=== PATIENT | male | born 1965 | race Caucasian/White ===

== ENCOUNTER → 2019-11-07 | Day surgery (SDC) | payer OTHER ==
[~2019-11-07] MED LIST: DICL50TA2 PO; IV RINGERS,LACTATED 1000ML 1,000 ML IV SCH; LIDOCAINE 2% PF 5 ML VIAL. ONE; LISI10TA2 PO; PROPOFOL 40 ML IV ONE
[2019-11-07 10:13] VITALS: BP 122/62
== END ==
LOC: SURG 08:10
PROVIDERS: ATTEND Internal Medicine Gastroenterology
DX: Z12.11 Encounter for screening for malignant neoplasm of colon (principal); K64.0 First degree hemorrhoids; K63.89 Other specified diseases of intestine; K25.9 Gastric ulcer, unspecified as acute or chronic, without hemorrhage or perforation; K21.9 Gastro-esophageal reflux disease without esophagitis; I10 Essential (primary) hypertension; Z83.71 Family history of colonic polyps; Z88.0 Allergy status to penicillin
CPT/HCPCS: 45378; J2001; J2704

== ENCOUNTER → 2020-01-06 | Outpatient (CLI) | payer OTHER ==
[2019-11-07 10:13] VITALS: BP 122/62
[~2020-01-06] MED LIST changes: -IV RINGERS,LACTATED 1000ML 1,000 ML IV SCH; -LIDOCAINE 2% PF 5 ML VIAL. ONE; -PROPOFOL 40 ML IV ONE
--- NOTE | 2020-01-06 07:39 | RAD ---
EXAM: CHEST 2 VIEWS. HISTORY: Psoriasis. COMPARISON: None. FINDINGS: Frontal and lateral views of the chest are obtained. There are no confluent infiltrates. There is a calcified granuloma in the left midlung. There is no pneumothorax or pleural effusion. The heart is mildly enlarged. IMPRESSION: 1. Mild cardiomegaly. Electronically signed by: Emilia Nash MD (01/06/2020 7:36 AM) [id number]
== END | disposition home or self-care (01) ==
LOC: RAD 07:03
PROVIDERS: ATTEND Physician Assistant
DX: J84.10 Pulmonary fibrosis, unspecified (principal); L40.9 Psoriasis, unspecified; I51.7 Cardiomegaly
CPT/HCPCS: 71046

== ENCOUNTER → 2020-01-23 | Outpatient (CLI) | payer OTHER ==
[2019-11-07 10:13] VITALS: BP 122/62
[~2020-01-23] MED LIST changes: +IRON1TAB PO
== END | disposition home or self-care (01) ==
LOC: LAB 14:07
PROVIDERS: ATTEND Internal Medicine Gastroenterology
DX: D50.9 Iron deficiency anemia, unspecified (principal); Z20.828 Contact with and (suspected) exposure to other viral communicable diseases; Z80.9 Family history of malignant neoplasm, unspecified
CPT/HCPCS: 36415; 87635

== ENCOUNTER → 2020-01-28 | Day surgery (SDC) | payer OTHER ==
[~2020-01-28] MED LIST changes: +IV RINGERS,LACTATED 1000ML 1,000 ML IV SCH; +PROPOFOL 10 MG/ML (20ML) VIAL. IV ONE
[2020-01-28 08:33] VITALS: BP 114/76
== END | disposition home or self-care (01) ==
LOC: ENDOS 06:44
PROVIDERS: ATTEND Internal Medicine Gastroenterology
DX: K92.2 Gastrointestinal hemorrhage, unspecified (principal); D64.9 Anemia, unspecified; K21.9 Gastro-esophageal reflux disease without esophagitis; G47.33 Obstructive sleep apnea (adult) (pediatric); I10 Essential (primary) hypertension; Z82.49 Family history of ischemic heart disease and other diseases of the circulatory system; Z88.0 Allergy status to penicillin; Z83.71 Family history of colonic polyps; Z79.899 Other long term (current) drug therapy
CPT/HCPCS: 43235; J2704